=== PATIENT | male | born 1940 | race Caucasian/White ===

== ENCOUNTER 2021-04-27 06:31 | Emergency (ER) | payer MEDICARE ==
[2021-04-27] MEDS ORDERED: Bacitracin 1 PK ONE (08:08)
== END 2021-04-27 08:18 | disposition home or self-care (01) ==
LOC: ERS 06:31
DX: S09.90XA Unspecified injury of head, initial encounter (principal); S01.01XA Laceration without foreign body of scalp, initial encounter; F17.210 Nicotine dependence, cigarettes, uncomplicated; W19.XXXA Unspecified fall, initial encounter
CPT/HCPCS: 70450; 72125; 93005